=== PATIENT | female | born 1995 | race Caucasian/White ===

== ENCOUNTER 2021-10-22 19:10 | Emergency (ER) | payer SELFPAY ==
[~2021-10-22] VITALS: Ht 167.6 cm; Wt 59.0 kg
--- NOTE | 2021-10-22 20:55 | NUR ---
Not in lobby.
[2021-10-22] MEDS ORDERED: dexamethasone 4mg tablet PO ONE (21:00)
[2021-10-22] MEDS ORDERED: normal saline 1000ml 1,000 ML IV ONE ×2 (21:00)
[2021-10-22] MEDS ORDERED: amox tr/potassium clavulanate 875/125mg TAB PO ONE (21:00)
[2021-10-22] MEDS ORDERED: DEXAMETHASONE 6 MG TABLET PO ONE (21:05)
--- NOTE | 2021-10-22 21:15 | NUR ---
Not in lobby.
[2021-10-22] MEDS ORDERED: LORazepam 1 MG tablet PO ONE (21:40)
[2021-10-22 22:06] LABS: BASOPHILS % (AUTO) 0.2 % (0-1); EOSINOPHILS % (AUTO) 0.8 % (0-6); HEMATOCRIT 41.4 % (35.0-45.0); HEMOGLOBIN 14.3 g/dl (12.0-16.0); LYMPHOCYTES # (AUTO) 1.3 X10'3 (1.1-4.8); LYMPHOCYTES % (AUTO) 22.9 % (21-51); MEAN CORPUSCULAR HEMOGLOBIN 30.1 PG (27.0-31.0); MEAN CORPUSCULAR HGB CONC 34.5 g/dL (33.0-36.5); MEAN CORPUSCULAR VOLUME 87.1 FL (78-98); MEAN PLATELET VOLUME 8.5 FL (7.4-10.4); MONOCYTES # (AUTO) 0.5 X10'3 (0-0.9); MONOCYTES % (AUTO) 8.5 % (2-12); NEUTROPHILS # (AUTO) 3.8 X10'3 (1.8-7.7); NEUTROPHILS % (AUTO) 67.6 % (42-75); PLATELET COUNT 226 X10'3 (140-440); RED BLOOD COUNT 4.76 X10'6 (4.20-5.60); RED CELL DISTRIBUTION WIDTH 12.6 % (11.5-14.5); WHITE BLOOD COUNT 5.6 X10'3 (4.5-11.0)
[2021-10-22 22:20] LABS: D-DIMER 0.21 MG/L FEU (0-0.50); MONOTEST NEGATIVE (Neg)
[2021-10-22 22:28] LABS: ALANINE AMINOTRANSFERASE 19 U/L (12-78); ALBUMIN 3.5 G/DL (3.4-5.0); ALBUMIN/GLOBULIN RATIO 0.8 (1.1-1.5); ALKALINE PHOSPHATASE 89 IU/L (46-116); ANION GAP 10 (8-16); ASPARTATE AMINO TRANSFERASE 25 U/L (10-37); BILIRUBIN,TOTAL 0.3 MG/DL (0.1-1.0); BLOOD UREA NITROGEN 9 MG/DL (7-18); BUN/CREATININE RATIO 11.3 (6.6-38.0); CALCIUM 9.4 MG/DL (8.5-10.1); CHLORIDE 101 MMOL/L (99-107); GLUCOSE 98 MG/DL (70-104); POTASSIUM 3.7 MMOL/L (3.5-5.1); SODIUM 138 MMOL/L (135-145); TOTAL CARBON DIOXIDE 26.9 MMOL/L (24-32); eGFR 87 ML/MIN
[2021-10-22 22:35] LABS: MAGNESIUM 1.9 MG/DL (1.5-2.4)
[2021-10-22] MEDS ORDERED: PRED20TA PO (23:06)
[2021-10-22] MEDS ORDERED: AMOX-117 PO (23:06)
[2021-10-23 00:12] VITALS: BP 107/60
[2021-10-24] MEDS ORDERED: PRED20TA PO (20:06)
[2021-10-24] MEDS ORDERED: AMOX-422 PO (20:06)
== END 2021-10-23 00:16 | disposition home or self-care (01) ==
LOC: ER 19:11
DX: J02.0 Streptococcal pharyngitis (principal); Z79.899 Other long term (current) drug therapy
CPT/HCPCS: 36415; 80053; 83605; 83735; 83880; 84145; 84484; 85025; 85379; 86308; 87040; 87077; 87081; 87880; 93005; 96360; 96361; 99284; J7030; J8540